=== PATIENT | female | born 1945 | race Caucasian/White ===

== ENCOUNTER → 2016-07-12 | Outpatient (CLI) | payer OTHER ==
[~2016-07-12] MED LIST: ANTIVERT/2525 MG PO; NKHM; ULTRAM50 MG PO
== END | disposition home or self-care (01) ==
LOC: US 15:20
DX: M79.604 Pain in right leg (principal)

== ENCOUNTER → 2016-07-13 | Outpatient (CLI) | payer OTHER ==
[2016-07-13 11:44] LABS: HEMATOCRIT 44.1 % (37.0-47.0); HEMOGLOBIN 14.2 g/dl (12.0-16.0); MEAN CELL VOLUME 98.2 fl (81.0-99.0); MEAN CORPUSCULAR HGB 31.6 pg (27.0-31.0); MEAN CORPUSCULAR HGB CONC 32.2 g/dl (33.0-37.0); MEAN PLATELET VOLUME 9.5 fl (9.6-12.3); RED BLOOD COUNT 4.49 10*6/uL (4.10-5.10); RED CELL DISTRI WIDTH 11.9 % (0-14.5); WHITE BLOOD COUNT 5.7 10*3/uL (4.8-10.8)
[2016-07-13 12:14] LABS: ALBUMIN 3.8 gm/dl (3.1-4.5); ALKALINE PHOSPHATASE 80 U/L (45-117); BILIRUBIN, TOTAL 0.8 mg/dl (0.2-1.0); BUN 12 mg/dl (7-24); CARBON DIOXIDE 32 mmol/L (21-32); CHLORIDE 106 mmol/L (98-107); CHOLESTEROL 199 mg/dL (<200); CPK 54 U/L (26-192); EST GLOM FILT AFRICAN AMERICAN > 60 ml/min; GLUCOSE 114 mg/dL (65-99); HDL CHOLESTEROL 56 mg/dl (40-60); LDL CHOLESTEROL 116 mg/dL (9-159); POTASSIUM 4.1 mmol/L (3.5-5.1); SGOT/AST 14 IU/L (3-35); SGPT/ALT 20 U/L (12-78); SODIUM 143 mmol/L (136-145); TRIGLYCERIDES 134 mg/dl (<150); VLDL CHOLESTEROL 27 mg/dL (6-40)
== END | disposition home or self-care (01) ==
LOC: LAB 02:13
PROVIDERS: Family Medicine
DX: E78.00 Pure hypercholesterolemia, unspecified (principal); M79.671 Pain in right foot; E55.9 Vitamin D deficiency, unspecified; R60.0 Localized edema

== ENCOUNTER 2018-07-22 20:10 | Inpatient (IN) | payer OTHER ==
[~2018-07-22] VITALS: Ht 167.6 cm; Wt 100.4 kg
--- NOTE | ~2018-07-22 | EKG ---
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
--- NOTE | ~2018-07-22 | EKG ---
[place], [place] ELECTROCARDIOGRAM REPORT NAME: SCHUYLER HERRERA UNIT #: [id number] ROOM: 407 DOCTOR: BREA DRAFT REPORT BIRTHDATE: [birth year] [facility] Test Date: 2018-07-22 Test Time: 20:43:21 Pat Name: SCHUYLER HERRERA Department: Room: 407 Gender: F Ultrasound Tech: Anisha Fulton : 1945 Requested By: LILIANA LOUISE Order Number: [id number] Reading MD: Isela Larson MD Measurements Intervals [place] Rate: 69 P: 66 [place]: 150 QRS: 43 QRSD: 98 T: 55 QT: 383 QTc: 411 Interpretive Statements Sinus rhythm Borderline abnrm T, anterolateral leads Electronically Signed On 07-26-2018 7:01:15 PST by Isela Larson MD CM:EKGRPT:ELECTROCARDIOGRAM REPORT 42 0701 LILIANA LOUISE EPIPHANY DRAFT REPORT LILIANA LOUISE
--- NOTE | ~2018-07-22 | CON ---
[place], [place] REPORT OF CONSULTATION NAME: SCHUYLER HERRERA UNIT #: [id number] ROOM: 407 DOCTOR: NAKIA PINTO MD BIRTHDATE: [birth year] DOS: 07/23/2018 HISTORY OF PRESENT ILLNESS: This is a very pleasant 73-year-old -[place] lady with a history of morbid obesity, COPD who had a hysterectomy in the remote past. She has never had pneumonia, heart attack, heart failure, rhythm disorder of the heart, stroke, cancer, kidney problems, any bleeding ulcers. She does not know her cholesterol level. Her father was in his 50s when he had a coronary artery bypass graft surgery. One brother is in his 60s who had coronary artery disease diagnosed. She quit smoking some 10 years ago and smoked for a long time. History was obtained from the patient and her son who happened to be present. She has chronic exertional shortness of breath. The son tells me for the last 1-2 years when she climbs 4 or 5 steps at home, she becomes very short of breath and if she climbs a full flight of stairs, she has to sit down and relax. She has never had any exertional chest pain. She was admitted to the hospital because she had a severe cough that was unrelenting so that she almost passed out. She has 3 such episodes and came to the Emergency Department. She had some chest heaviness and tightness before she started coughing. She had no palpitations, dizziness, loss of consciousness. No orthopnea or swelling of the lower extremities when she walks. ALLERGIES: No known drug allergies. HOME MEDICATIONS: None. PHYSICAL EXAMINATION: GENERAL: This reveals a patient who is moderately obese. She is very pleasant, alert, oriented. Her complexion is fine. She is not cyanotic nor jaundiced. There is no thyromegaly or finger clubbing. VITAL SIGNS: Pulse is irregular at 66 beats per minute, blood pressure 139/53. Highest blood pressure was 187/86. NECK: JVP is normal. There is no carotid bruit. HEART: There is no cardiomegaly, no murmurs are present. EXTREMITIES: Dorsalis pedal pulses are easily appreciated. There is no edema of the lower extremity. RESPIRATORY: Percussion note is normal. Auscultation reveals moderately reduced breath sounds bilaterally. She has adventitious sounds, namely crackles and rhonchi in both lungs. ABDOMEN: Supple, nontender. No bruit is present. Initial ECG demonstrates normal sinus rhythm with slightly upright T waves in lateral chest leads. Second ECG demonstrates mild inversion of T waves in lateral chest leads. Troponin I level was 0.87 and marixa to 1.02 and has trended down to 0.6. Chest x-ray was reviewed by me and it shows normal heart size and no acute lung process. Sodium 141, potassium 4.0. BUN is 13, creatinine 0.54, hemoglobin 14.5 grams, [place], [place] REPORT OF CONSULTATION NAME: SCHUYLER HERRERA UNIT #: [id number] ROOM: 407 DOCTOR: NAKIA PINTO MD BIRTHDATE: [birth year] platelets 221,000. IMPRESSION: 1. This patient most likely has sustained non-ST elevation acute myocardial infarction. 2. Chronic obstructive pulmonary disease appears to be present and I think it is moderate in severity. 3. Acute bronchitis exacerbating chronic obstructive pulmonary disease. I discussed my findings and recommendations, namely right and left heart catheterization including possible percutaneous intervention with the patient and her son. Risks and the benefits including CVA, ME, , hematoma, vascular injury, and renal insufficiency were discussed. She understands and would like to proceed. I thank you for this consult. NAKIA PINTO MD CM:CONSTR:REPORT OF CONSULTATION 1212 08/04/18 1032 beto BOLDEN
--- NOTE | ~2018-07-22 | EKG ---
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
--- NOTE | ~2018-07-22 | EKG ---
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
--- NOTE | ~2018-07-22 | DS ---
[place], [place] DISCHARGE SUMMARY NAME: [facility]A [id number] UNIT #: [id number] ROOM: 407 DOCTOR: LUIS BILLINGSLEY MD BIRTHDATE: [birth year] DOS: 07/24/2018 DIAGNOSES: 1. Non-ST elevation myocardial infarction. 2. Acute tracheobronchitis. HOSPITAL COURSE: The patient is 73 years old, comes in with complaints of chest pain and cough. Please refer to H and P for details. The patient did have normal chest x-ray, was placed on antibiotics, but the rule out NC protocol did come back showing that the patient's troponin was elevated. Sputum cultures have been negative. The Cardiology consultation was obtained. Echocardiogram was ordered, which did not show any pathology. The patient does not have any risk factors. She is not a smoker, does not have a history of hypertension or diabetes. Because of significant elevation in the enzymes, she was considered to have a non-ST elevation NC. Dr. Larson has taken her for a cardiac catheterization today. LUIS BILLINGSLEY MD CM:FERDINAND 0805 [id number] LUIS BILLINGSLEY MD 07/24/18 1051 interface
--- NOTE | ~2018-07-22 | WRIGHTHP ---
[place], [place] PATIENT HISTORY AND PHYSICAL EXAM [id number] UNIT #: [id number] ROOM: 407 DOCTOR: LUIS BILLINGSLEY MD BIRTHDATE: [birth year] DOS: HISTORY OF PRESENT ILLNESS: This patient is 73 years old. The patient states that she has had a cough for the last couple of days, but yesterday the cough got really bad and she was unable to stop coughing. She also developed some midsternal chest pain without any radiation, thought it was just a muscle cramp, but decided to come into the Emergency Room where she was evaluated. After admission, the patient has not had any complaints of increased chest pain. SOCIAL HISTORY: History of smoking many years ago. Denies using any alcohol. PHYSICAL EXAMINATION: GENERAL: She is awake and alert and oriented, in no major distress. VITAL SIGNS: Graphic trend shows a pressure of 139/53, pulse of 63, respirations 18, temperature 97.5. LUNGS: Diminished breath sounds, clear this morning. HEART: Regular. ABDOMEN: Obese, soft, nontender. EXTREMITIES: Without any edema. ASSESSMENT AND PLAN: 1. Midsternal chest pain with elevated troponin, possible non-ST elevation myocardial infarction. The patient was placed on Lovenox and nitrates. Await cardiology consultation. Echocardiogram has been ordered along with an aspirin. Troponin level has trended down. 2. Acute tracheobronchitis, on IV antibiotics, she can be switched to p.o. Chest x-ray was unremarkable. There is no evidence of pneumonia. LUIS BILLINGSLEY MD CM:HISPHYS:PATIENT HISTORY AND PHYSICAL EXAMINATION LUIS BILLINGSLEY MD 07/23/18 0846 interface
[2018-07-22 20:11] VITALS: BP 187/86
[2018-07-22 20:42] LABS: BASO % 0.6 % (0.0-1.0); EOS # 0.1 10*3/uL (0.0-0.4); EOS % 0.9 % (1.0-4.0); HEMOGLOBIN 14.5 g/dl (12.0-16.0); LYMPH # 1.5 10*3/uL (1.3-4.4); LYMPH % 21.9 % (27.0-41.0); MEAN CELL VOLUME 97.3 fl (81.0-99.0); MEAN CORPUSCULAR HGB 32.8 pg (27.0-31.0); MEAN CORPUSCULAR HGB CONC 33.7 g/dl (33.0-37.0); MEAN PLATELET VOLUME 9.4 fl (9.6-12.3); MONO # 0.6 10*3/uL (0.1-1.0); MONO % 8.5 % (3.0-9.0); NEUT # 4.6 10*3/uL (2.3-7.9); NEUT % 67.7 % (47.0-73.0); PLATELET COUNT AUTOMATED 221 10*3/uL (130-400); RED BLOOD COUNT 4.42 10*6/uL (4.10-5.10); RED CELL DISTRI WIDTH 11.8 % (0-14.5); WHITE BLOOD COUNT 6.8 10*3/uL (4.8-10.8)
[2018-07-22 20:57] LABS: ALKALINE PHOSPHATASE 86 U/L (45-117); BUN 13 mg/dl (7-24); CHLORIDE 107 mmol/L (98-107); CREATININE 0.54 mg/dL (0.55-1.02); LIPASE 109 U/L (73-393); SGOT/AST 13 IU/L (3-35); SGPT/ALT 17 U/L (12-78); SODIUM 141 mmol/L (136-145); TOTAL PROTEIN 7.4 gm/dL (6.4-8.2)
[2018-07-22 20:59] LABS: TROPONIN I 0.153 ng/ml (<0.045)
[2018-07-22 22:01] VITALS: BP 146/73
[2018-07-22 23:41] LABS: BILIRUBIN NEGATIVE (NEGATIVE); BLOOD NEGATIVE (NEGATIVE); CLARITY CLEAR (CLEAR); COLOR YELLOW (YELLOW); GLUCOSE NEGATIVE (NEGATIVE); KETONE TRACE (NEGATIVE); LEUKO ESTERASE NEGATIVE (NEGATIVE); NITRITE NEGATIVE (NEGATIVE); PH 5.5 (5.0-9.0); SPECIFIC GRAVITY <= 1.005 (1.005-1.030); UROBILINOGEN 0.2 E.U./dl (0.2-1.0)
[2018-07-23 00:02] LABS: BACTERIA TRACE; RBC 0-2 rbc/hpf (0-2); WBC 0-2 wbc/hpf (0-5)
[2018-07-23 00:25] VITALS: BP 150/93
[2018-07-23 04:00] VITALS: BP 139/53
[2018-07-23 08:00] VITALS: BP 140/80
[2018-07-23 12:00] VITALS: BP 136/67
[2018-07-23 13:22] LABS: CHOLESTEROL 174 mg/dL (<200); HDL CHOLESTEROL 41 mg/dl (40-60); LDL CHOLESTEROL 110 mg/dL (9-159); TRIGLYCERIDES 114 mg/dl (<150); VLDL CHOLESTEROL 23 mg/dL (6-40)
[2018-07-23 16:00] VITALS: BP 142/73
[2018-07-23 20:00] VITALS: BP 125/56
[2018-07-24] VITALS: BP 144/75
[2018-07-24 08:00] VITALS: BP 148/70
== END 2018-07-24 07:53 | disposition other institution (70) | DRG 281 ==
LOC: ED 20:10 → EDHOLD 23:01 → 4E 23:01
PROVIDERS: Internal Medicine Cardiovascular Disease; Nurse Practitioner Family; ADMIT Internal Medicine
DX: I21.4 Non-ST elevation (NSTEMI) myocardial infarction (principal); J44.0 Chronic obstructive pulmonary disease with (acute) lower respiratory infection; J44.1 Chronic obstructive pulmonary disease with (acute) exacerbation; E66.01 Morbid (severe) obesity due to excess calories; J20.9 Acute bronchitis, unspecified; Z90.710 Acquired absence of both cervix and uterus; Z82.49 Family history of ischemic heart disease and other diseases of the circulatory system; Z87.891 Personal history of nicotine dependence; Z68.35 Body mass index [BMI] 35.0-35.9, adult

== ENCOUNTER → 2018-08-11 | Outpatient (CLI) | payer OTHER ==
[2018-08-11 14:12] LABS: HEMATOCRIT 41.5 % (37.0-47.0); HEMOGLOBIN 13.6 g/dl (12.0-16.0); MEAN CELL VOLUME 97.9 fl (81.0-99.0); MEAN CORPUSCULAR HGB 32.1 pg (27.0-31.0); MEAN CORPUSCULAR HGB CONC 32.8 g/dl (33.0-37.0); MEAN PLATELET VOLUME 9.9 fl (9.6-12.3); RED BLOOD COUNT 4.24 10*6/uL (4.10-5.10); RED CELL DISTRI WIDTH 11.7 % (0-14.5); WHITE BLOOD COUNT 7.4 10*3/uL (4.8-10.8)
[2018-08-11 14:34] LABS: ALBUMIN 3.7 gm/dl (3.1-4.5); ALKALINE PHOSPHATASE 88 U/L (45-117); BUN 16 mg/dl (7-24); CHLORIDE 105 mmol/L (98-107); CHOLESTEROL 112 mg/dL (<200); CPK 46 U/L (26-192); HDL CHOLESTEROL 44 mg/dl (40-60); LDL CHOLESTEROL 51 mg/dL (9-159); POTASSIUM 3.9 mmol/L (3.5-5.1); SGOT/AST 16 IU/L (3-35); SGPT/ALT 21 U/L (12-78); SODIUM 143 mmol/L (136-145); TOTAL PROTEIN 7.2 gm/dL (6.4-8.2); TRIGLYCERIDES 85 mg/dl (<150); VLDL CHOLESTEROL 17 mg/dL (6-40)
== END | disposition home or self-care (01) ==
LOC: LAB 13:37
PROVIDERS: Family Medicine
DX: I25.10 Atherosclerotic heart disease of native coronary artery without angina pectoris (principal); I10 Essential (primary) hypertension; E78.00 Pure hypercholesterolemia, unspecified; E55.9 Vitamin D deficiency, unspecified

== ENCOUNTER → 2020-05-19 | Outpatient (CLI) | payer OTHER | END | disposition home or self-care (01) | LOC: COVID19 13:37 | PROVIDERS: ATTEND Social Worker Clinical | DX: U07.1 COVID-19 (principal) ==

== ENCOUNTER → 2020-07-11 | Outpatient (CLI) | payer OTHER | END | disposition home or self-care (01) | LOC: RESCLI 07-08 06:43 | PROVIDERS: ATTEND Internal Medicine Nephrology | DX: J44.9 Chronic obstructive pulmonary disease, unspecified (principal); M79.89 Other specified soft tissue disorders; R42 Dizziness and giddiness; I10 Essential (primary) hypertension; I25.10 Atherosclerotic heart disease of native coronary artery without angina pectoris; E78.5 Hyperlipidemia, unspecified; I21.4 Non-ST elevation (NSTEMI) myocardial infarction; Z79.02 Long term (current) use of antithrombotics/antiplatelets ==

== ENCOUNTER → 2020-09-22 | Outpatient (CLI) | payer OTHER ==
[2020-09-22 10:55] LABS: MEAN CELL VOLUME 97.7 fl (81.0-99.0); MEAN CORPUSCULAR HGB 30.8 pg (27.0-31.0); MEAN CORPUSCULAR HGB CONC 31.6 g/dl (33.0-37.0); MEAN PLATELET VOLUME 9.5 fl (9.6-12.3); RED BLOOD COUNT 3.89 10*6/uL (4.10-5.10); RED CELL DISTRI WIDTH 12.9 % (0-14.5); WHITE BLOOD COUNT 5.3 10*3/uL (4.8-10.8)
[2020-09-22 11:28] LABS: ALBUMIN 3.3 gm/dl (3.1-4.5); BUN 22 mg/dl (7-24); CHLORIDE 107 mmol/L (98-107); CHOLESTEROL 140 mg/dL (<200); CREATININE 0.74 mg/dL (0.55-1.02); POTASSIUM 3.8 mmol/L (3.5-5.1); SGOT/AST 28 IU/L (3-35); SGPT/ALT 26 U/L (12-78); SODIUM 141 mmol/L (136-145); TRIGLYCERIDES 67 mg/dl (<150); VLDL CHOLESTEROL 13 mg/dL (6-40)
[2020-09-22 11:32] LABS: ALKALINE PHOSPHATASE 88 U/L (45-117); CPK 80 U/L (26-192); FREE T4 1.04 ng/dl (0.76-1.46); HDL CHOLESTEROL 66 mg/dl (40-60); LDL CHOLESTEROL 61 mg/dL (9-159); TOTAL PROTEIN 6.7 gm/dL (6.4-8.2)
== END | disposition home or self-care (01) ==
LOC: LAB 10:21
PROVIDERS: ATTEND Family Medicine
DX: I70.0 Atherosclerosis of aorta (principal); E78.00 Pure hypercholesterolemia, unspecified; E55.9 Vitamin D deficiency, unspecified; R53.83 Other fatigue; R42 Dizziness and giddiness; Z72.0 Tobacco use

== ENCOUNTER → 2020-11-10 | Outpatient (CLI) | payer OTHER | END | disposition home or self-care (01) | LOC: RAD 14:47 | PROVIDERS: ATTEND Nurse Practitioner Family | DX: M17.12 Unilateral primary osteoarthritis, left knee (principal); M25.762 Osteophyte, left knee; M25.862 Other specified joint disorders, left knee ==

== ENCOUNTER → 2020-12-22 | Outpatient (CLI) | payer OTHER ==
[2020-12-22 13:21] LABS: ALBUMIN 3.5 gm/dl (3.1-4.5); ALKALINE PHOSPHATASE 93 U/L (45-117); BUN 14 mg/dl (7-24); CHLORIDE 108 mmol/L (98-107); CHOLESTEROL 126 mg/dL (<200); CPK 61 U/L (26-192); CREATININE 0.67 mg/dL (0.55-1.02); LDL CHOLESTEROL 52 mg/dL (9-159); POTASSIUM 4.4 mmol/L (3.5-5.1); SGOT/AST 29 IU/L (3-35); SGPT/ALT 27 U/L (12-78); SODIUM 141 mmol/L (136-145); TOTAL PROTEIN 6.9 gm/dL (6.4-8.2); TRIGLYCERIDES 68 mg/dl (<150)
== END | disposition home or self-care (01) ==
LOC: LAB 12:38
PROVIDERS: ATTEND Family Medicine
DX: E78.00 Pure hypercholesterolemia, unspecified (principal); I10 Essential (primary) hypertension

== ENCOUNTER → 2021-07-25 | Outpatient (CLI) | payer OTHER | END | disposition home or self-care (01) | LOC: RESCLI 01:34 | PROVIDERS: ATTEND Internal Medicine | DX: M79.89 Other specified soft tissue disorders (principal); I25.10 Atherosclerotic heart disease of native coronary artery without angina pectoris; R42 Dizziness and giddiness; I11.0 Hypertensive heart disease with heart failure; I50.22 Chronic systolic (congestive) heart failure; E78.5 Hyperlipidemia, unspecified; J44.9 Chronic obstructive pulmonary disease, unspecified; Z79.899 Other long term (current) drug therapy; Z98.890 Other specified postprocedural states ==

== ENCOUNTER → 2021-11-27 | Outpatient (CLI) | payer OTHER ==
[2021-11-27 10:16] LABS: HEMATOCRIT 38.2 % (37.0-47.0); MEAN CELL VOLUME 98.5 fl (81.0-99.0); MEAN CORPUSCULAR HGB 32.2 pg (27.0-31.0); MEAN CORPUSCULAR HGB CONC 32.7 g/dl (33.0-37.0); MEAN PLATELET VOLUME 9.6 fl (9.6-12.3); RED BLOOD COUNT 3.88 10*6/uL (4.10-5.10); RED CELL DISTRI WIDTH 12.4 % (0-14.5); WHITE BLOOD COUNT 5.2 10*3/uL (4.8-10.8)
[2021-11-27 10:34] LABS: BUN 17 mg/dl (7-24); CHLORIDE 109 mmol/L (98-107); CHOLESTEROL 109 mg/dL (<200); CPK 40 U/L (26-192); CREATININE 0.75 mg/dL (0.55-1.02); SODIUM 143 mmol/L (136-145); TRIGLYCERIDES 56 mg/dl (<150)
[2021-11-27 10:37] LABS: ALKALINE PHOSPHATASE 84 U/L (45-117); LDL CHOLESTEROL 34 mg/dL (9-159); SGOT/AST 30 IU/L (3-35); SGPT/ALT 25 U/L (12-78); TOTAL PROTEIN 6.6 gm/dL (6.4-8.2)
[2021-11-27 11:15] LABS: VITAMIN D, 25-HYDROXY 23.2 ng/mL (30-100)
== END | disposition home or self-care (01) ==
LOC: LAB 09:40
PROVIDERS: ATTEND Family Medicine
DX: R05.9 Cough, unspecified (principal); I25.10 Atherosclerotic heart disease of native coronary artery without angina pectoris; R53.83 Other fatigue; E55.9 Vitamin D deficiency, unspecified; E78.00 Pure hypercholesterolemia, unspecified; I10 Essential (primary) hypertension

== ENCOUNTER → 2022-04-18 | Outpatient (CLI) | payer OTHER ==
[2022-04-18 11:52] LABS: HEMATOCRIT 37.5 % (37.0-47.0); MEAN CELL VOLUME 100.5 fl (81.0-99.0); MEAN CORPUSCULAR HGB 31.9 pg (27.0-31.0); MEAN CORPUSCULAR HGB CONC 31.7 g/dl (33.0-37.0); MEAN PLATELET VOLUME 9.5 fl (9.6-12.3); RED BLOOD COUNT 3.73 10*6/uL (4.10-5.10); RED CELL DISTRI WIDTH 13.2 % (0-14.5); WHITE BLOOD COUNT 4.5 10*3/uL (4.8-10.8)
[2022-04-18 12:13] LABS: BUN 17 mg/dl (7-24); CHLORIDE 110 mmol/L (98-107); CHOLESTEROL 113 mg/dL (<200); CREATININE 0.76 mg/dL (0.55-1.02); POTASSIUM 3.9 mmol/L (3.5-5.1); SGOT/AST 38 IU/L (3-35); SGPT/ALT 35 U/L (12-78); SODIUM 145 mmol/L (136-145); TRIGLYCERIDES 46 mg/dl (<150)
[2022-04-18 12:15] LABS: ALKALINE PHOSPHATASE 84 U/L (45-117); CPK 53 U/L (26-192); LDL CHOLESTEROL 45 mg/dL (9-159); TOTAL PROTEIN 6.7 gm/dL (6.4-8.2)
[2022-04-18 12:33] LABS: VITAMIN D, 25-HYDROXY 18.1 ng/mL (30-100)
== END | disposition home or self-care (01) ==
LOC: LAB 11:29
PROVIDERS: ATTEND Family Medicine
DX: J44.9 Chronic obstructive pulmonary disease, unspecified (principal); E74.9 Disorder of carbohydrate metabolism, unspecified; E55.9 Vitamin D deficiency, unspecified; I10 Essential (primary) hypertension; E78.00 Pure hypercholesterolemia, unspecified; Z79.899 Other long term (current) drug therapy

== ENCOUNTER → 2022-05-08 | Outpatient (CLI) | payer OTHER ==
[2022-05-09 13:05] LABS: ANTI-SMOOTH MUSCLE ANTIBODY 15 Units (0-19)
== END ==
LOC: LAB 10:58
PROVIDERS: ATTEND Family Medicine
DX: E80.6 Other disorders of bilirubin metabolism (principal)

== ENCOUNTER → 2022-10-15 | Outpatient (CLI) | payer OTHER | END | disposition home or self-care (01) | LOC: RESCLI 01:30 | PROVIDERS: ATTEND Student in an Organized Health Care Education/Training Program | DX: I25.10 Atherosclerotic heart disease of native coronary artery without angina pectoris (principal); J30.2 Other seasonal allergic rhinitis; F41.9 Anxiety disorder, unspecified; I10 Essential (primary) hypertension; I11.0 Hypertensive heart disease with heart failure; I50.22 Chronic systolic (congestive) heart failure; R42 Dizziness and giddiness; E78.5 Hyperlipidemia, unspecified; Z98.890 Other specified postprocedural states; Z79.899 Other long term (current) drug therapy ==

== ENCOUNTER → 2023-06-13 | Outpatient (CLI) | payer OTHER | END | disposition home or self-care (01) | LOC: CT 09:54 | PROVIDERS: ATTEND Internal Medicine Critical Care Medicine | DX: J43.9 Emphysema, unspecified (principal); R91.8 Other nonspecific abnormal finding of lung field; E27.9 Disorder of adrenal gland, unspecified; Z87.891 Personal history of nicotine dependence; Z68.37 Body mass index [BMI] 37.0-37.9, adult ==

== ENCOUNTER → 2023-07-19 | Outpatient (CLI) | payer MEDICARE ==
[2023-07-19 08:29] LABS: HEMATOCRIT 36.9 % (37.0-47.0); MEAN CELL VOLUME 95.1 fl (81.0-99.0); MEAN CORPUSCULAR HGB 28.9 pg (27.0-31.0); MEAN CORPUSCULAR HGB CONC 30.4 g/dl (33.0-37.0); MEAN PLATELET VOLUME 9.3 fl (9.6-12.3); RED BLOOD COUNT 3.88 10*6/uL (4.10-5.10); RED CELL DISTRI WIDTH 15.7 % (0-14.5); WHITE BLOOD COUNT 6.2 10*3/uL (4.8-10.8)
[2023-07-19 08:46] LABS: ALKALINE PHOSPHATASE 86 U/L (46-116); BUN 19 mg/dl (9-23); CHLORIDE 105 mmol/L (98-107); CHOLESTEROL 123 mg/dL (<200); CPK 37 U/L (34-171); LDL CHOLESTEROL 62 mg/dL (9-159); POTASSIUM 4.2 mmol/L (3.4-5.1); SGPT/ALT 84 U/L (5-49); TOTAL PROTEIN 6.8 gm/dL (6.0-8.0); TRIGLYCERIDES 60 mg/dl (<150)
== END | disposition home or self-care (01) ==
LOC: LAB 08:10
PROVIDERS: ATTEND Family Medicine
DX: I25.10 Atherosclerotic heart disease of native coronary artery without angina pectoris (principal); I10 Essential (primary) hypertension; J44.9 Chronic obstructive pulmonary disease, unspecified; E78.00 Pure hypercholesterolemia, unspecified; E11.9 Type 2 diabetes mellitus without complications

== ENCOUNTER → 2023-08-07 | Outpatient (CLI) | payer MEDICARE | END | disposition home or self-care (01) | LOC: MAMMO 10:09 | PROVIDERS: ATTEND Family Medicine | DX: Z12.31 Encounter for screening mammogram for malignant neoplasm of breast (principal) ==

== ENCOUNTER → 2023-08-28 | Outpatient (CLI) | payer MEDICARE ==
[2023-08-28 09:34] LABS: ALKALINE PHOSPHATASE 84 U/L (46-116); BUN 14 mg/dl (9-23); CHLORIDE 106 mmol/L (98-107); GAMMA GLUTAMYL TRANSPEPTIDASE 20 U/L (0-73); POTASSIUM 4.1 mmol/L (3.4-5.1); SGPT/ALT 139 U/L (5-49); TOTAL PROTEIN 6.5 gm/dL (6.0-8.0)
== END | disposition home or self-care (01) ==
LOC: LAB 08:26
PROVIDERS: ATTEND Family Medicine
DX: R79.89 Other specified abnormal findings of blood chemistry (principal); Z79.899 Other long term (current) drug therapy

== ENCOUNTER → 2023-09-06 | Outpatient (CLI) | payer MEDICARE ==
[2023-09-07 08:09] LABS: HBSAG Negative (Negative); HEP B CORE AB, IGM Negative (Negative); HEPATITIS C ANTIBODY Non Reactive (Non Reactive)
== END | disposition home or self-care (01) ==
LOC: LAB 12:04
PROVIDERS: ATTEND Family Medicine
DX: R94.5 Abnormal results of liver function studies (principal); Z79.899 Other long term (current) drug therapy

== ENCOUNTER → 2023-09-19 | Outpatient (CLI) | payer MEDICARE | END | disposition home or self-care (01) | LOC: US 09-11 03:31 | PROVIDERS: ATTEND Family Medicine | DX: I71.40 Abdominal aortic aneurysm, without rupture, unspecified (principal); R94.5 Abnormal results of liver function studies ==

== ENCOUNTER → 2023-10-21 | Outpatient (CLI) | payer MEDICARE | END | disposition home or self-care (01) | LOC: RAD 16:37 | PROVIDERS: ATTEND Family Medicine | DX: M77.32 Calcaneal spur, left foot (principal); M25.572 Pain in left ankle and joints of left foot; M79.89 Other specified soft tissue disorders ==

== ENCOUNTER → 2023-10-28 | Outpatient (CLI) | payer MEDICARE | END | disposition home or self-care (01) | LOC: RESCLI 01:38 | PROVIDERS: ATTEND Family Medicine | DX: I25.10 Atherosclerotic heart disease of native coronary artery without angina pectoris (principal); J30.2 Other seasonal allergic rhinitis; I11.0 Hypertensive heart disease with heart failure; I50.22 Chronic systolic (congestive) heart failure; R42 Dizziness and giddiness; Z79.02 Long term (current) use of antithrombotics/antiplatelets; Z79.82 Long term (current) use of aspirin; Z98.890 Other specified postprocedural states; Z79.899 Other long term (current) drug therapy ==

== ENCOUNTER → 2024-04-15 | Outpatient (CLI) | payer MEDICARE | END | disposition home or self-care (01) | LOC: RAD 15:45 | PROVIDERS: ATTEND Family Medicine | DX: R05.9 Cough, unspecified (principal); R06.2 Wheezing ==

== ENCOUNTER → 2024-10-27 | Outpatient (CLI) | payer MEDICARE | LOC: RESCLI 02:31 | PROVIDERS: ATTEND Student in an Organized Health Care Education/Training Program | DX: J44.9 Chronic obstructive pulmonary disease, unspecified (principal); I25.10 Atherosclerotic heart disease of native coronary artery without angina pectoris; J30.2 Other seasonal allergic rhinitis; I11.0 Hypertensive heart disease with heart failure; I50.22 Chronic systolic (congestive) heart failure; R42 Dizziness and giddiness; E78.5 Hyperlipidemia, unspecified; E55.9 Vitamin D deficiency, unspecified; F41.9 Anxiety disorder, unspecified ==